=== PATIENT | female | born 1955 | race Caucasian/White ===

== ENCOUNTER 2018-01-06 10:13 | Emergency (ER) | payer BC ==
[2018-01-06] MEDS ORDERED: Albuterol/Ipratropium 3.0-0.5 MG/3 ML Neb Soln NEB ONE (11:01)
[2018-01-06] MEDS ORDERED: Lidocaine 2% Viscous Solution 15 ML Cup PO ONE (11:01)
--- NOTE | 2018-01-06 11:05 | EDM.PDOC ---
ED HPI GENERAL MEDICAL PROBLEM - General Chief Complaint: ENT Problem Stated Complaint: SORE THROAT Time Seen by Provider: 01/06/18 10:52 - History of Present Illness INITIAL COMMENTS - FREE TEXT/NARRATIVE: HISTORY AND PHYSICAL: History of present illness: The patient is a 62-year-old female who lives in [place] and is here in town addressing her father's properties in estate after his recent and presents with complaints of 3-4 days of dry cough sore throat and some malaise. The patient says that she has had pneumonia multiple times and is very sensitive to chemicals air pollutants and allergens and she is concerned because she does not live in this area and it is very dry and she has been working with chemicals and been exposed to different environments of unclean situations. Patient denies any shortness of breath or chest pain has no vomiting or diarrhea and has not had a fever per se. Her cough is dry and nonproductive and she says her throat pain has worsened and it is scratchy and she is feeling like she is going to start losing her voice. She says that this has happened many times before it is not unusual but because she is away from her provider in [place] and needs to finish up her activities here she wanted to be evaluated. Patient does not have any chronic pulmonary diagnoses that she is aware of. She is eating and drinking normally. She has no medications to use for any of these symptoms. The patient states she does have a history of rheumatoid arthritis and has taken steroids in the past as well as asthmatic bronchitis. Review of systems: As per history of present illness and below otherwise all systems reviewed and negative. Past medical history: As per history of present illness and as reviewed below otherwise noncontributory. Surgical history: As per history of present illness and as reviewed below otherwise noncontributory. Social history: No reported history of drug or alcohol abuse. Family history: As per history of present illness and as reviewed below otherwise noncontributory. Physical exam: General: Well-developed well-nourished female who is nontoxic and speaks without breathlessness. Her voice is not hoarse or muffled but it is a bit scratchy. I was able to hear her cough which is very dry ED HEENT: Atraumatic, normocephalic, pupils reactive, negative for conjunctival pallor or scleral icterus, mucous membranes moist, throat clear, neck supple, nontender, trachea midline. Lungs: Clear to auscultation, breath sounds equal bilaterally, chest nontender. There is no wheezing stridor or work of breathing Heart: S1S2, regular rate and rhythm no overt murmurs Abdomen: Soft, nondistended, nontender. NABS Pelvis: Deferred Genitourinary: Deferred. Rectal: Deferred. Extremities: Atraumatic, negative for cords or calf pain. Neurovascular unremarkable. No pedal edema Neuro: Awake, alert, oriented. Cranial nerves II through XII unremarkable. Cerebellum unremarkable. Motor and sensory unremarkable throughout. Exam nonfocal. Diagnostics: Rapid strep, chest x-ray, soft tissue neck x-ray CBC CMP CT scan of the soft tissue neck Therapeutics: Viscous lidocaine orally, DuoNeb CRL radiology has read the soft tissue neck as a possibly thickened epiglottis and cannot exclude epiglottitis. I will perform labs and a CT scan of the soft tissue neck and the patient is aware Patient was hesitant to take steroids for home but is open to a Medrol Dosepak as it is lower dose therapy. She is also open to the viscous lidocaine for home as well as an albuterol inhaler with a spacer. She is aware of all testing results and need for follow-up when she goes back home to [place]. Impression: throat pain, spastic cough/bronchitis likely triggered by environmental triggers Definitive disposition and diagnosis as appropriate pending reevaluation and review of above. Throat Pain Score (Numeric/FACES): 10 - Related Data Allergies Allergy/AdvReac Type Severity Reaction Status Date / Time No Known Allergies Allergy Verified 01/06/18 10:48 Home Meds: Home Meds . 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: Musculoskeletal History: Reports: Other (See Below) Other Musculoskeletal History: rheumatoid arthritis - Past Surgical History GI Surgical History: Reports: Cholecystectomy Female Surgical History: Reports: Hysterectomy, Other (See Below) Other Female Surgeries/Procedures: pt states she had bladder surgery, but cannot remember what for Neurological Surgical History: Reports: Other (See Below) Other Neurological Surgeries/Procedures: spine surgery Social & Family History - Family History Family Medical History: Noncontributory - Tobacco Use Smoking Status *Q: Never Smoker - Caffeine Use Caffeine Use: Reports: Coffee - Recreational Drug Use Recreational Drug Use: No ED ROS GENERAL - Review of Systems Review Of Systems: ROS reveals no pertinent complaints other than HPI. ED EXAM, GENERAL - Physical Exam Exam: See Below (see Dictation) Course - Vital Signs Last Recorded V/S: Last Vital Signs Temp 36.8 C 01/06/18 10:44 Pulse 66 01/06/18 10:44 Resp 16 01/06/18 10:44 BP 138/80 01/06/18 10:44 Pulse Ox 95 01/06/18 10:44 - Orders/Labs/Meds Orders: Active Orders 24 hr Category Date Time Status RT Aerosol Therapy [RC] ASDIRECTED Care 01/06/18 11:01 Active Chest 2V [CR] Stat Exams 01/06/18 11:01 Taken Neck Soft Tissue [CR] Stat Exams 01/06/18 11:01 Taken Soft Tissue Neck w Cont [CT] Stat Exams 01/06/18 11:45 Taken CULTURE STREP A CONFIRMATION [RM] Stat Lab 01/06/18 11:04 Results STREP SCRN A RAPID W CULT CONF [RM] Stat Lab 01/06/18 11:04 Ordered Sodium Chloride 0.9% [Saline Flush] Med 01/06/18 11:45 Active 10 ml FLUSH ASDIRECTED PRN Sodium Chloride 0.9% [Saline Flush] Med 01/06/18 11:45 Active 2.5 ml FLUSH ASDIRECTED PRN Saline Lock Insert [OM.PC] Stat Oth 01/06/18 11:45 Ordered Medication Orders Sodium Chloride (Saline Flush) 10 ml FLUSH ASDIRECTED PRN PRN Reason: Keep Vein Open Sodium Chloride (Saline Flush) 2.5 ml FLUSH ASDIRECTED PRN PRN Reason: Keep Vein Open Labs: Laboratory Tests 01/06/18 01/06/18 Range/Units 11:55 11:55 WBC 6.14 (4.0-11.0) K/uL RBC 3.82 L (4.30-5.90) M/uL Hgb 12.7 (12.0-16.0) g/dL Hct 37.5 (36.0-46.0) % MCV 98.2 H (80.0-98.0) fL MCH 33.2 H (27.0-32.0) pg MCHC 33.9 (31.0-37.0) g/dL RDW Std Deviation 46.5 (28.0-62.0) fl RDW Coeff of Mg 13 (11.0-15.0) % Plt Count 233 (150-400) K/uL MPV 11.10 (7.40-12.00) fL Neut % (Auto) 48.9 (48.0-80.0) % Lymph % (Auto) 35.2 (16.0-40.0) % [place] % (Auto) 11.2 (0.0-15.0) % Eos % (Auto) 4.2 (0.0-7.0) % Baso % (Auto) 0.5 (0.0-1.5) % Neut # (Auto) 3.0 (1.4-5.7) K/uL Lymph # (Auto) 2.2 (0.6-2.4) K/uL [place] # (Auto) 0.7 (0.0-0.8) K/uL Eos # (Auto) 0.3 (0.0-0.7) K/uL Baso # (Auto) 0.0 (0.0-0.1) K/uL Nucleated RBC % 0.0 /100WBC Nucleated RBCs # 0 K/uL Sodium 142 (136-145) mmol/L Potassium 4.5 (3.5-5.1) mmol/L Chloride 107 (98-107) mmol/L Carbon Dioxide 27.4 (21.0-32.0) mmol/L BUN 13 (7.0-18.0) mg/dL Creatinine 0.8 (0.6-1.0) mg/dL Est Cr Clr Drug Dosing 57.67 mL/min Estimated GFR (MDRD) > 60.0 ml/min Glucose 91 (74-106) mg/dL Calcium 8.8 (8.5-10.1) mg/dL Meds: Medications Generic Name Dose Route Start Last Admin Trade Name Freq PRN Reason Stop Dose Admin Sodium Chloride 10 ml 01/06/18 11:45 Saline Flush FLUSH ASDIRECTED PRN Keep Vein Open Sodium Chloride 2.5 ml 05/26/18 11:45 Saline Flush FLUSH ASDIRECTED PRN Keep Vein Open Discontinued Medications Generic Name Dose Route Start Last Admin Trade Name Cassie PRN Reason Stop Dose Admin Albuterol/Ipratropium 3 ml 01/06/18 11:01 01/06/18 11:24 Duoneb 3.0-0.5 Mg/3 Ml NEB 01/06/18 11:02 3 ml ONETIME ONE Administration Iopamidol 75 ml 01/06/18 13:08 01/06/18 13:08 Isovue Multipack-370 (76%) IVPUSH 01/06/18 13:09 75 ml ONETIME ONE Administration Lidocaine HCl 15 ml 01/06/18 11:01 01/06/18 11:06 Xylocaine 2% Viscous PO 01/06/18 11:02 15 ml ONETIME ONE Administration Departure - Departure Time of Disposition: 13:38 Disposition: Home, Self-Care 01 Condition: Good Clinical Impression: Throat pain in adult, Spasmodic cough, Bronchospasm - Discharge Information Referrals: PCP,None [Primary Care Provider] - Forms: ED Department Discharge Additional Instructions: The following information is given to patients seen in the emergency department who are being discharged to home. This information is to outline your options for follow-up care. We provide all patients seen in our emergency department with a follow-up referral. The need for follow-up, as well as the timing and circumstances, are variable depending upon the specifics of your emergency department visit. If you don't have a primary care physician on staff, we will provide you with a referral. We always advise you to contact your personal physician following an emergency department visit to inform them of the circumstance of the visit and for follow-up with them and/or the need for any referrals to a consulting specialist. The emergency department will also refer you to a specialist when appropriate. This referral assures that you have the opportunity for followup care with a specialist. All of these measure are taken in an effort to provide you with optimal care, which includes your followup. Under all circumstances we always encourage you to contact your private physician who remains a resource for coordinating your care. When calling for followup care, please make the office aware that this follow-up is from your recent emergency room visit. If for any reason you are refused follow-up, please contact the [facility] emergency department at and ask to speak to the emergency department charge nurse. JULIANN [facility] Primary care- Internal Medicine and Family [place] [id number] [place] [id number] Please follow-up with one of our clinic providers if you stay in [facility] or your provider at home in [place]. Please use albuterol via spacer every 6-8 hours as needed and use the Medrol Dosepak and viscous lidocaine as prescribed. Push hydration and try to avoid exposure to environmental triggers if possible. Return to ER as needed and as discussed - My Orders Last 24 Hours: My Active Orders 01/06/18 11:01 RT Aerosol Therapy [RC] ASDIRECTED Chest 2V [CR] Stat Neck Soft Tissue [CR] Stat 01/06/18 11:04 CULTURE STREP A CONFIRMATION [RM] Stat STREP SCRN A RAPID W CULT CONF [RM] Stat 01/06/18 11:45 Soft Tissue Neck w Cont [CT] Stat Sodium Chloride 0.9% [Saline Flush] 10 ml FLUSH ASDIRECTED PRN Sodium Chloride 0.9% [Saline Flush] 2.5 ml FLUSH ASDIRECTED PRN Saline Lock Insert [OM.PC] Stat - Assessment/Plan Last 24 Hours: My Active Orders 01/06/18 11:01 RT Aerosol Therapy [RC] ASDIRECTED Chest 2V [CR] Stat Neck Soft Tissue [CR] Stat 01/06/18 11:04 CULTURE STREP A CONFIRMATION [RM] Stat STREP SCRN A RAPID W CULT CONF [RM] Stat 01/06/18 11:45 Soft Tissue Neck w Cont [CT] Stat Sodium Chloride 0.9% [Saline Flush] 10 ml FLUSH ASDIRECTED PRN Sodium Chloride 0.9% [Saline Flush] 2.5 ml FLUSH ASDIRECTED PRN Saline Lock Insert [OM.PC] Stat
[2018-01-06] MEDS ORDERED: Sodium Chloride 0.9% 10 ML Syringe FLUSH PRN (11:45)
[2018-01-06] MEDS ORDERED: Sodium Chloride 0.9% 2.5 ML Syringe FLUSH PRN (11:45)
[2018-01-06 12:30] LABS: CHLORIDE,CL 107 mmol/L (98-107); SODIUM,NA 142 mmol/L (136-145)
[2018-01-06] MEDS ORDERED: Iopamidol 755 MG/ML 200 ML Multipack Bottle IVPUSH ONE (13:08)
--- NOTE | 2018-01-08 12:01 | CR ---
EXAM DATE: 01/06/18 PATIENT'S AGE: 62 Patient: MAINE MATSON Facility: [place], [place] Site . Site : 1955 Study: XRay ST Neck [id number]/26/2018 11:17:27 AM Ordering Physician: [place] Final Report: INDICATION: Sore throat. TECHNIQUE: AP and lateral views of the neck utilizing soft tissue technique. COMPARISON: None. FINDINGS: Epiglottis and aryepiglottic folds possibly thickened. Hypopharynx not distended. Otherwise unremarkable. IMPRESSION: Possible mild epiglottitis. Dictated by Darren Junior MD @ Jan 06 2018 11:27AM (Electronic Signature) Report Signed by Proxy. RAMON
--- NOTE | 2018-01-08 12:01 | CR ---
EXAM DATE: 01/06/18 PATIENT'S AGE: 62 Patient: MAINE MATSON Facility: [place], [place] Site . Site : 1955 Study: XRay Chest [id number]/26/2018 11:19:14 AM Ordering Physician: [place] Alfonso Final Report: INDICATION: Cough. Sore throat. TECHNIQUE: PA and lateral. COMPARISON: None. FINDINGS: Lungs and pleural spaces clear. Heart size and pulmonary vasculature within normal limits. No significant osseous abnormality. IMPRESSION: Negative chest. Dictated by Darren Junior MD @ Jan 06 2018 11:30AM (Electronic Signature) Report Signed by Proxy. RAMON
--- NOTE | 2018-01-08 12:28 | CT ---
EXAM DATE: 01/06/18 PATIENT'S AGE: 62 Patient: MAINE MATSON Facility: [place], [place] Site . Site : 1955 Study: CT ST Neck w cont [id number]/26/2018 1:10:33 PM Ordering Physician: [place] Alfonso Final Report: Indication: Sore throat. Technique: CT soft tissue neck with IV contrast was acquired from the skullbase to the thoracic inlet. No comparisons. Findings: Visualized posterior fossa structures are within normal limits. The thyroid, submandibular and parotid glands are within normal limits. The cervical airway is widely patent. Vallecula and piriform sinuses are within normal limits. Visualized pulmonary apices are grossly unremarkable. No suspicious pathologically enlarged lymph nodes. The palatine tonsils are within normal limits. No suspicious fluid collections. No convincing evidence suspicious enhancing masses seen within the soft tissues in neck. The epiglottis appears within normal limits. Impression: 1. No radiographic evidence of peripherally enhancing fluid collections. 2. No radiographic evidence of acute abnormalities within the visualized soft tissues of the neck. Dictated by Maciel Wise MD @ 01/06/2018 1:29:02 PM Please note that all CT scans at this facility use dose modulation, iterative reconstruction, and/or weight-based dosing when appropriate to reduce radiation dose to as low as reasonably achievable. Dictated by: Maciel Wise MD @ 01/06/2018 13:29:11 (Electronic Signature) Report Signed by Proxy. [facility]ENTER[facility]ia
== END 2018-01-06 13:57 | disposition home or self-care (01) ==
LOC: MW.ED 10:13
DX: J98.01 Acute bronchospasm (principal); Z87.01 Personal history of pneumonia (recurrent)
CPT/HCPCS: 36415; 70360; 70491; 71046; 80048; 85025; 87081; 87880; 94640; 99284; A9270; Q9967